=== PATIENT | male | born 1990 | race Caucasian/White ===

== ENCOUNTER 2018-06-26 14:06 | Emergency (ER) | payer OTHER ==
[2018-06-26 14:25] VITALS: BP 125/74
--- NOTE | 2018-06-26 14:31 | ED Physician Documentation ---
PD HPI UPPER EXT INJURY - Stated complaint Stated Complaint: L SHOULDER INJ - Chief complaint Chief Complaint: Ext Problem - History obtained from History obtained from: Patient - History of Present Illness Location: Left, Shoulder Type of injury: Blunt / blow (checked hard against the boards playing hockey last night.) Timing - onset: Last night Timing - details: Abrupt onset, Still present Worsened by: Moving, Palpating Associated symptoms: Swelling (has a focal area of swelling/deformity superior aspect of shoulder.). No: Weakness, Numbness Review of Systems Skin: denies: Abrasion (s), Laceration (s) Musculoskeletal: reports: Joint pain (left shoulder) Neurologic: denies: Focal weakness, Numbness PD PAST MEDICAL HISTORY - Past Medical History Cardiovascular: None Respiratory: None Musculoskeletal: None - Present Medications Home Medications: Ambulatory Orders Medication Instructions Recorded Confirmed No Known Home Medications 06/26/18 06/26/18 - Allergies Allergies/Adverse Reactions: Allergies Allergy/AdvReac Type Severity Reaction Status Date / Time No Known Drug Allergies Allergy Verified 06/26/18 14:24 PD ED PE NORMAL - Vitals Vital signs reviewed: Yes - General General: Alert and oriented X 3, Well developed/nourished - Neck Neck: Supple, no meningeal sign, No bony TTP, No adenopathy - Cardiac Cardiac: RRR, No murmur - Respiratory Respiratory: Clear bilaterally, Other (no chestwall tenderness) - Derm Derm: Normal color, Warm and dry - Extremities Extremities: Other (left shoulder tender at AC joint with step off there. Humeral head in correctly located. Pain with abduction. Rotational movements against resistance are okay so does not seem rotator cuff too. ) - Neuro Neuro: No motor deficit, No sensory deficit Results - Vitals Vitals: Oxygen O2 Source Room air - Rads (name of study) left shoulder Radiology: Prelim report reviewed, EMP read contemporaneously (AC separation), See rad report PD MEDICAL DECISION MAKING - ED course Complexity details: reviewed results, considered differential, d/w patient Departure - Departure Disposition: 01 Home, Self Care Clinical Impression: AC separation Qualifiers: Encounter type: initial encounter Laterality: left Qualified Code(s): S43.102A - Unspecified dislocation of left acromioclavicular joint, initial encounter Condition: Stable Record reviewed to determine appropriate education?: Yes Instructions: ED Sprain AC Joint Follow-Up: ABIDA Hussein [Provider Group] Comments: Sling for the shoulder and arm for 3-4 weeks until healed. Follow-up with your primary in about a week to see how well it is healing and if they want to initiate some exercises with the shoulder. For now just to have it slung much of the time. No overhead reaching push pull or lifting with that arm. Be sure the sling is snug enough to level the arm and shoulder with the collarbone. Ibuprofen 2-3 times a day and add Tylenol if needed. Forms: Activity restrictions Discharge Date/Time: 06/26/18 15:39
--- NOTE | 2018-06-26 14:54 | XRAY Report ---
Reason: injury Procedure Date: 06/26/2018 Accession Number: [id number] / [id number] Procedure: XR - Shoulder 3 View LT CPT Code: FULL RESULT: EXAM: LEFT SHOULDER RADIOGRAPHY EXAM DATE: 06/26/2018 02:43 PM. CLINICAL HISTORY: Injury. COMPARISON: None. TECHNIQUE: 4 views. FINDINGS: Bones: Normal. No fracture or bone lesion. Joints: There is widening of the acromioclavicular joint. Glenohumeral alignment appears satisfactory. Soft tissues: The visualized hemithorax is unremarkable. No soft tissue swelling. IMPRESSION: Widening of the acromioclavicular joint space consistent with AC separation. Satisfactory glenohumeral alignment. [facility]
[2018-06-26] MEDS ORDERED: IBUPROFEN 600 MG TABLET PO STA (15:11)
[2018-06-26] MEDS ORDERED: ACETAMINOPHEN 325 MG TABLET PO STA (15:11)
== END 2018-06-26 15:39 | disposition home or self-care (01) ==
LOC: ED 14:06
DX: S43.102A Unspecified dislocation of left acromioclavicular joint, initial encounter (principal); W22.09XA Striking against other stationary object, initial encounter; Y93.22 Activity, ice hockey
CPT/HCPCS: 73030; 99283; A9270